=== PATIENT | female | born 2000 | race African-American/Black ===

== ENCOUNTER 2021-08-02 07:58 | Day surgery (SDC) | payer OTHER ==
[~2021-08-02] VITALS: Ht 177.8 cm; Wt 69.9 kg
[~2021-08-02 07:58] MED LIST: BCP PO; LR 1,000 ML IV ONE
[2021-08-02] MEDS ORDERED: BUPIVACAINE HCL 0.5% 30 ML VIAL As Ordered ONE (10:23)
[2021-08-02] MEDS ORDERED: LIDOCAINE W/EPINEPHRINE 1% 20ML VIAL As Ordered ONE (10:23)
[2021-08-02] MEDS ORDERED: MIDAZOLAM INJ 2MG/2ML VIAL (J2250 PER 1MG) As Ordered ONE (10:46)
[2021-08-02] MEDS ORDERED: LIDOCAINE 2% 100MG/5ML SDV (FOR ANES.) As Ordered ONE (10:46)
[2021-08-02] MEDS ORDERED: propofoL 200 MG/20 ML VIAL As Ordered ONE (10:46)
[2021-08-02] MEDS ORDERED: fentaNYL 250 MCG/5 ML INJECTION As Ordered ONE (10:46)
[2021-08-02] MEDS ORDERED: SUGAMMADEX SODIUM 500 MG/5 ML VIAL (BRIDION) As Ordered ONE (10:46)
[2021-08-02] MEDS ORDERED: ROCURONIUM BROMIDE 50 MG/5 ML VIAL As Ordered ONE (10:46)
[2021-08-02] MEDS ORDERED: ONDANSETRON 4MG/2ML VIAL As Ordered ONE (10:46)
[2021-08-02] MEDS ORDERED: dexameTHASONE 4 MG/ML 1ML VIAL (J1100 PER 1MG) As Ordered ONE (10:46)
[2021-08-02] MEDS ORDERED: KETOROLAC 60MG 2ML VIAL As Ordered ONE (10:58)
[2021-08-02] MEDS ORDERED: ONDANSETRON 4MG/2ML VIAL IV PRN (11:30)
[2021-08-02] MEDS ORDERED: HYDROMORPHONE HCL 0.5 MG/ 0.5 ML SYRINGE (J1170 PER 1) IV PRN (11:30)
[2021-08-02] MEDS ORDERED: PROMETHAZINE INJ 25 MG/ML VIAL (J2550) IV PRN (11:30)
[2021-08-02] MEDS ORDERED: MEPERIDINE INJ 25 MG/ML VIAL (J2175) IV PRN (11:30)
[2021-08-02] MEDS ORDERED: ACETAMINOPH W/CODEINE #3 TAB UD PO PRN (11:55)
[2021-08-02] MEDS ORDERED: LR 1,000 ML IV SCH (11:55)
[2021-08-02 12:30] VITALS: BP 111/61
[2021-08-02] MEDS ORDERED: KETOROLAC 30 MG/ML 1ML VIAL IV PRN (12:30)
== END 2021-08-02 13:05 | disposition home or self-care (01) ==
LOC: M SDC 07:58
PROVIDERS: ATTEND Otolaryngology
DX: J35.01 Chronic tonsillitis (principal); R06.83 Snoring; Z79.3 Long term (current) use of hormonal contraceptives
CPT/HCPCS: 42826; 81025; 88302; J1100; J1885; J2250; J2405; J3010

== ENCOUNTER 2024-03-24 09:59 | Emergency (ER) | payer OTHER ==
[~2024-03-24] VITALS: Ht 177.8 cm; Wt 82.1 kg
[~2024-03-24 09:59] MED LIST changes: -LR 1,000 ML IV ONE
[2024-03-24 10:05] VITALS: BP 144/84; TEMP 97.5; O2SAT 98
[2024-03-24] MEDS ORDERED: CYCL-707 PO (10:15)
[2024-03-24] MEDS ORDERED: DULO1CAP5 (10:15)
[2024-03-24] MEDS ORDERED: MIRENA (10:15)
[2024-03-24] MEDS ORDERED: CEPH500C PO (12:25)
== END 2024-03-24 12:37 | disposition home or self-care (01) ==
LOC: M ED 09:59
DX: L03.114 Cellulitis of left upper limb (principal); M54.50 Low back pain, unspecified; F41.9 Anxiety disorder, unspecified